=== PATIENT | female | born 1970 | race Caucasian/White ===

== ENCOUNTER 2019-01-06 14:29 | Emergency (ER) | payer OTHER ==
[~2019-01-06] VITALS: Ht 175.3 cm; Wt 78.2 kg
[2019-01-06 14:35] VITALS: Ht 175.3 cm; Wt 78.2 kg
[2019-01-06] MEDS ORDERED: LIPITOR20 MG PO (14:37)
[2019-01-06] MEDS ORDERED: NEURONTIN 300300 MG PO (14:38)
[2019-01-06] MEDS ORDERED: ASPIRIN81 MG PO (14:39)
[2019-01-06] MEDS ORDERED: LITHOBID 300 M300 MG PO (14:39)
[2019-01-06] MEDS ORDERED: ZANAFLEX4 MG PO (14:40)
[2019-01-06] MEDS ORDERED: PROTONIX40 MG PO (14:40)
[2019-01-06] MEDS ORDERED: GEMFIBROZIL600 MG PO (14:41)
[2019-01-06] MEDS ORDERED: HYDROXYZINE PA100 MG PO (14:42)
[2019-01-06] MEDS ORDERED: TRAZODONE HCL150 MG PO (14:43)
[2019-01-06 15:08] LABS: BASOPHILS 0.6 % (0-2); EOSINOPHILS 5.9 % (0-7); HEMATOCRIT 44.9 % (36.0-48.0); HEMOGLOBIN 15.3 g/dL (12-16); IMMATURE GRANULOCYTES 0.3 % (0-5); LYMPHOCYTES 30.1 % (15-50); MCH 31.5 pg (26.0-34.0); MCHC 34.1 g/dL (31.0-37.0); MCV 92.6 fL (80.0-100.0); MEAN PLATELET VOLUME 9.8 fL (7.4-10.4); MONOCYTES 7.8 % (2-11); NEUTROPHILS 55.3 % (40-80); PLATELET COUNT 330 10x3/uL (130-400); RBC 4.85 10x6/uL (4.00-5.40); RDW 15.1 % (11.5-14.5); WBC 10.8 10x3/uL (4.8-10.8)
[2019-01-06 15:22] LABS: ALBUMIN 4.2 g/dL (3.4-5.0); ALKALINE PHOSPHATASE 118 U/L (46-116); ALT (SGPT) 17 U/L (10-68); AMYLASE - SERUM 51 U/L (25-115); BILIRUBIN - TOTAL 0.33 mg/dL (0.2-1.3); CALC OSMOLALITY 274 mosm/kg (275-300); CALCIUM 9.3 mg/dL (8.5-10.1); CARBON DIOXIDE 28.9 mmol/L (21.0-32.0); CHLORIDE - SERUM 100 mmol/L (98-107); CREATININE - SERUM 0.8 mg/dL (0.6-1.3); GLUCOSE 99 mg/dL (74-106); LIPASE 206 U/L (73-393); POTASSIUM - SERUM 4.1 mmol/L (3.5-5.1); SODIUM 137 mmol/L (136-145); UREA NITROGEN 14 mg/dL (7-18); eGFR NON AFRICAN AMERICAN 81 mL/min (90-120)
[2019-01-06 15:30] LABS: APPEARANCE CLEAR (CLEAR); BILIRUBIN NEGATIVE (NEGATIVE); COLOR YELLOW (YELLOW); EPITHELIAL CELLS 0-5 /hpf (0-5); GLUCOSE NEGATIVE (NEGATIVE); KETONE NEGATIVE (NEGATIVE); NITRITE NEGATIVE (NEGATIVE); PROTEIN NEGATIVE (NEGATIVE); RED CELLS - URINE OCC /hpf (0-5); SPECIFIC GRAVITY 1.015 (1.005-1.020); UROBILINOGEN NORMAL (NORMAL); WHITE CELLS - URINE NSEEN /hpf (0-5)
[2019-01-06 16:31] VITALS: BP 135/65
== END 2019-01-06 17:54 | disposition home or self-care (01) ==
LOC: D.ER 14:29
PROVIDERS: Emergency Medicine
DX: R11.10 Vomiting, unspecified (principal)